=== PATIENT | male | born 1985 | race Caucasian/White ===

== ENCOUNTER 2020-10-10 13:01 | Outpatient (RCR) | payer BC, SELFPAY | END 2020-10-10 13:05 | disposition home or self-care (01) | LOC: PT 13:01 | PROVIDERS: Visit Provider Physical Medicine & Rehabilitation | DX: R41.841 Cognitive communication deficit (principal) | CPT/HCPCS: 97163 ==

== ENCOUNTER 2020-12-01 16:00 | Outpatient (RCR) | payer BC, SELFPAY ==
--- NOTE | 2020-10-10 14:02 | HMH.SLAPHASI ---
Speech & Language Evaluation Speech/Language Aphasia Evaluation Start: 10/10/20 13:54 Freq: once Status: Complete Protocol: Document 10/10/20 13:54 ROCKY (Rec: 10/10/20 14:02 ROCKY [id number]) Aphasia Assessment/Goals/Plan Assessment Date of Evaluation: 10/10/20 Evaluation Type Initial Certification Assessment/Problems TBI Does Patient Qualify for Service Yes Qualify/Failure Comment Results indicate a need for speech therapy to address concerns Plan Pt will be seen # times/week 2 for # weeks 6 Anticipate reaching STG in # weeks 4 Anticipate reaching LTG in # weeks 6 Pt/Guardian verbally ack understanding Yes of dx/prognosis/goals G -code Required No STG-Auditory Comprehension Paragraph Level 90 STG-Comparative/Linguistic Skills Thought Organization 90 Categorization Ability 90 STG-Divergent Thinking Deductive Reasoning 90 Inductive Reasoning 90 Speech & Language HPI History Present Illness Description of Patient Problem TBI Symptom Onset Date 09/08/20 Rehab Services Assessed Speech therapy Aphasia Evaluations Communication Speech Intelligibility Speech Intelligibility is judged to be within functional limits. Auditory Comprehension Yes: Word Level Sentences Following Directions Conversation No: Paragraph AC Comment It is noted that Mr. Calles is impulsive to answer questions in paragraph level. Reading Comprehension Yes: Letter Naming Word Naming Sentences Paragraphs Verbal Expressive Language Yes: Automatic Speech Completing Sentences Repetition Abilities Word Level Naming Naming Actions/Objects Sentence Level Defining Words Written Language Yes: Signature Copy Shapes Copy Words Check Writing Sentence Writing Attending/Orientation/Memory Yes: Delayed Recall W/ Interference Orientat
== END 2020-12-01 16:05 | disposition home or self-care (01) ==
LOC: ST 16:00
PROVIDERS: Visit Provider Physical Medicine & Rehabilitation
DX: R41.841 Cognitive communication deficit (principal); Z87.820 Personal history of traumatic brain injury
CPT/HCPCS: 92523; 97129; 97130

== ENCOUNTER → 2023-03-13 14:20 | Outpatient (CLI) | payer BC, SELFPAY ==
[2023-03-13 20:21] LABS: Basophils % 0.4 % (0.1-2.0); Eosinophils # 0.1 K/mm3 (0.0-0.4); Eosinophils % 0.8 % (0.1-12.0); Hematocrit 49.6 % (42.0-52.0); Lymphocytes # 2.9 K/mm3 (0.7-4.5); Lymphocytes % 45.4 % (10-50); Mean Corpuscular HGB Conc 32.1 g/dL (31.8-35.4); Mean Corpuscular Hemoglobin 32.1 pg (27.0-31.2); Mean Corpuscular Volume 99.9 fl (80-94); Mean Platelet Volume 9.7 fl (7.4-10.4); Monocytes # 0.4 K/mm3 (0.1-1.0); Monocytes % 6.8 % (1.7-9.3); Neutrophils # 2.9 K/mm3 (1.8-7.8); Neutrophils % 46.7 % (37.0-80.0); Platelet Count 303 K/mm3 (142-424); Red Blood Count 4.97 M/mm3 (4.60-6.20); Red Cell Distribution Width 12.3 % (11.5-17.5); White Blood Count 6.3 K/mm3 (4.8-10.8)
[2023-03-13 20:49] LABS: Alanine Aminotransferase 34 U/L (12-78); Albumin/Globulin Ratio 1.4 (1.1-1.8); Alkaline Phosphatase 73 U/L (38-126); Anion Gap 18.4 mEq/L (5-15); Aspartate Amino Transferase 28 U/L (17-59); Bilirubin,Total 0.2 mg/dl (0.2-1.3); Blood Urea Nitrogen 14 mg/dl (9-20); Calcium 9.1 mg/dl (8.4-10.2); Carbon Dioxide 25 mmol/L (22.0-30.0); Chloride 104 mmol/L (98-107); Estimated Glomerular Filt Rate 109 ml/min (>60); GFR (African American) 132 ML/MIN (>60); Globulin 3.5 g/dL (1.3-3.2); Glucose 63 mg/dl (74-100); Potassium 4.4 mmoL/L (3.5-5.1); Sodium 143 mmol/L (136-145); Total Protein,Serum 8.5 g/dl (6.3-8.2)
[2023-03-15 08:05] LABS: HBsAg Screen Negative (Negative); HCV Ab Non Reactive (Non Reactive); HIV Screen 4th Generation wRfx Non Reactive (Non Reactive); Hep A Ab, IGM Negative (Negative); Hep B Core Ab, IgM Negative (Negative)
== END ==
PROVIDERS: PCP Internal Medicine; Visit Provider Internal Medicine
DX: Z00.00 Encounter for general adult medical examination without abnormal findings (principal); S06.9X9A Unspecified intracranial injury with loss of consciousness of unspecified duration, initial encounter; F10.90 Alcohol use, unspecified, uncomplicated; F11.20 Opioid dependence, uncomplicated; F41.1 Generalized anxiety disorder; T07.XXXA Unspecified multiple injuries, initial encounter; Z11.4 Encounter for screening for human immunodeficiency virus [HIV]
CPT/HCPCS: 80053; 80074; 85025; 86703; G0432